=== PATIENT | male | born 2000 | race African-American/Black ===

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

== ENCOUNTER → 2020-03-03 | Outpatient (CLI) | payer MEDICAID ==
--- NOTE | 2020-03-03 11:40 | Diagnostic Imaging Report ---
EXAMINATION: Magnetic resonance imaging of the pelvis and left hip without contrast DATE: March 03, 2020. COMPARISON: None. INDICATION: 19-year-old male, left hip pain and weakness. Decreased range of motion. History of prior injury. TECHNIQUE: Magnetic Resonance Imaging sequences were performed of the pelvis and left hip without contrast. TENDONS AND MUSCLES: The gluteus kinsey muscles and their origins and insertions are intact bilaterally. The tendons and muscles of the greater trochanter - gluteus minimus, piriformis and gluteus medius - are intact bilaterally. Both common hamstring attachments on the ischial tuberosities are intact and the extensor muscles of the thigh are intact. The visualized portions of the flexors and adductor muscles of the thigh and their attachments on the pelvis and hips are intact. Both iliopsoas and iliacus muscles are intact. The bilateral iliopsoas tendons are intact. HIPS AND SACROILIAC JOINTS: There is an abnormal osseous protuberance at the left femoral head neck junction and also on the right. This is a morphologic feature which can be associated with cam-type femoral acetabular impingement which would be a clinical diagnosis. There is no identified fluid-filled labral tear or paralabral cyst. There is no joint space loss of either hip or hip joint effusion. The sacroiliac joints are unremarkable. LUMBAR SPINE: The visible portions of the lumbar spine are unremarkable on limited assessment. BONE: The bones all have normal configuration. The bone marrow signal is within normal limits. Specifically, negative for fracture, osteomyelitis, osteonecrosis, or marrow replacing process. BURSAE AND SOFT TISSUES: The bursae and soft tissues surrounding the pelvis and hips are within normal limits. IMPRESSION: 1. 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 No identified fluid-filled labral tear or paralabral cyst. No arthritis of either hip. 2. Intact muscles and tendons. 3. No acute fracture, bone contusion, or other notable bone marrow signal abnormality. Dictated by: Dictated on workstation # [id number]
== END ==
LOC: RAD 10:05
PROVIDERS: ATTEND Chiropractor
DX: M89.8X5 Other specified disorders of bone, thigh (principal); M25.552 Pain in left hip
CPT/HCPCS: 73721